=== PATIENT | female | born 1985 | race Caucasian/White ===

== ENCOUNTER 2018-02-04 04:30 | Inpatient (IN) | payer MEDICAID ==
[2018-02-04] MEDS ORDERED: AMPICILLIN 2 GM/NS (PMX) 100 ML (04:54)
[2018-02-04] MEDS ORDERED: OXYTOCIN 30 UNITS/LR 500 ML IV ×2 (05:00→18:00)
[2018-02-04] MEDS ORDERED: MISOPROSTOL 200 MCG TAB PR ×2 (05:00→18:00)
[2018-02-04] MEDS ORDERED: LIDOCAINE 1% (MPF) 30 ML INJ INJ (05:00)
[2018-02-04] MEDS ORDERED: METHYLERGONOVINE 0.2 MG INJ IM ×2 (05:00→18:00)
[2018-02-04] MEDS ORDERED: CARBOPROST 250 MCG INJ IM ×2 (05:00→18:00)
[2018-02-04] MEDS ORDERED: BUTORPHANOL 2 MG INJ IV (05:00)
[2018-02-04] MEDS: LACTATED RINGER'S 1,000 ML IV (05:13)
[2018-02-04] MEDS: AMPICILLIN 2 GM/NS (PMX) 100 ML IV (05:13)
[2018-02-04 05:22] LABS: ADD MAN DIFF? NO
[2018-02-04 05:30] LABS: BASOPHILS % 0.4 % (0.0-2.0); EOSINOPHILS # 0.1 10^3/ul (0.0-0.5); EOSINOPHILS % 1.9 % (0.0-7.0); HEMATOCRIT 36.5 % (37.0-47.0); HEMOGLOBIN 12.7 g/dl (12.0-16.0); LYMPHOCYTES # 1.5 10^3/ul (0.8-2.9); MEAN CORPUSCULAR HEMOGLOBIN 33.8 pg (29.0-33.0); MEAN CORPUSCULAR HGB CONC 34.8 g/dl (32.0-37.0); MEAN CORPUSCULAR VOLUME 97.1 fl (82.0-101.0); MEAN PLATELET VOLUME 11.3 fl (7.4-10.4); MONOCYTE # 0.5 10^3/ul (0.3-0.9); MONOCYTES % 6.7 % (0.0-11.0); NEUTROPHILS % 68.1 % (39.0-77.0); PLATELET COUNT 168 10^3/UL (140-415); RED BLOOD COUNT 3.76 10^6/ul (4.20-5.40); RED CELL DISTRIBUTION WIDTH 12.8 % (11.5-14.5)
[2018-02-04 05:30] LABS: WHITE BLOOD COUNT 7.3 10^3/ul (4.8-10.8)
[2018-02-04 05:44] LABS: INR 0.98; PROTIME 13.1 Sec (11.9-14.9)
[2018-02-04 05:46] LABS: PARTIAL THROMBOPLASTIN TIME 29.5 Sec (25.0-35.0)
[2018-02-04] MEDS ORDERED: FENTAnyl 2MCG/ML-ROPIV 0.2% 100 ML (05:59)
[2018-02-04] MEDS ORDERED: NALOXONE (0.4 MG/ML) INJ IV (06:30)
[2018-02-04] MEDS: LACTATED RINGER'S 1,000 ML IV* ×3 (06:44→19:00)
[2018-02-04] MEDS: FENTAnyl 2MCG/ML-ROPIV 0.2% 100 ML BAG EPI ×2 (06:45→13:36)
[2018-02-04 07:18] LABS: HEPATITIS B SURFACE ANTIGEN NEGATIVE (NEGATIVE)
[2018-02-04 07:37] LABS: GLUCOSE 78 mg/dl (70-220)
[2018-02-04 07:40] LABS: ADD UMIC NO; UR ASCORBIC ACID NEGATIVE (NEGATIVE); UR BILIRUBIN (Dip) NEGATIVE (NEGATIVE); UR BLOOD (Dip) NEGATIVE (NEGATIVE); UR CLARITY CLEAR (CLEAR); UR COLOR YELLOW (YELLOW); UR GLUCOSE (Dip) NEGATIVE (NEGATIVE); UR KETONES (Dip) TRACE mg/dL (NEGATIVE); UR LEUKOCYTE ESTERASE (Dip) NEGATIVE Leu/ul (NEGATIVE); UR NITRITE (Dip) NEGATIVE (NEGATIVE); UR SPECIFIC GRAVITY (Dip) 1.017 (1.003-1.030); UR TOTAL PROTEIN (Dip) NEGATIVE (NEGATIVE); UR UROBILINOGEN (Dip) NEGATIVE (NEGATIVE)
[2018-02-04] MEDS: AMPICILLIN 1 GM/NS (PMX) 50 ML IV ×2 (09:27→12:49)
[2018-02-04] MEDS: MINERAL OIL LIGHT 10 ML VIAL TOP (15:20)
[2018-02-04] MEDS: OXYTOCIN 30 UNITS/LR 500 ML IV ×2 (15:22→15:28)
[2018-02-04] MEDS: IBUPROFEN 600 MG TAB PO ×3 (17:14→23:26)
[2018-02-04] MEDS ORDERED: HYDROCODONE/APAP (5/325) TAB PO ×2 (18:00)
[2018-02-04] MEDS ORDERED: GLUCAGON 1 MG INJ IM (18:00)
[2018-02-04] MEDS ORDERED: DIBUCAINE 1% 30 GM OINT PR (18:00)
[2018-02-04] MEDS ORDERED: WITCH HAZEL/GLYCERIN PAD PR (18:00)
[2018-02-04] MEDS ORDERED: BENZOCAINE 20% 56 ML SPRAY TOP (18:00)
[2018-02-04] MEDS ORDERED: GLUCOSE GEL 15 GRAM TUBE PO ×2 (18:00)
[2018-02-04] MEDS ORDERED: DEXTROSE 50% 50 ML SYRINGE IV ×2 (18:00)
[2018-02-04] MEDS ORDERED: ZOLPIDEM 5 MG TAB PO (18:00)
[2018-02-04] MEDS ORDERED: GLUCOSE GEL 15 GRAM TUBE BUCCAL (18:00)
[2018-02-04] MEDS: CEPHALEXIN 500 MG CAP PO ×2 (18:44→23:26)
[2018-02-04] MEDS: LANOLIN 7 GM TUBE TOP (18:44)
[2018-02-04 19:33] LABS: RAPID PLASMA REAGIN NONREACTIVE (NR)
[2018-02-04] MEDS: ACCU-CHEK XX (20:26)
[2018-02-04] MEDS: metFORMIN (XR) 500 MG TAB PO (20:31)
[2018-02-04] MEDS: SENNA/DOCUSATE NA (8.6MG/50MG) TAB PO (21:00)
[2018-02-04] MEDS: MAGNESIUM HYDROXIDE 30ML CUP PO (21:00)
[2018-02-05] MEDS: IBUPROFEN 600 MG TAB PO ×4 (06:03→23:34)
[2018-02-05] MEDS: CEPHALEXIN 500 MG CAP PO ×4 (06:03→23:34)
[2018-02-05 06:37] LABS: ADD MAN DIFF? NO
[2018-02-05 06:46] LABS: BASOPHIL # 0.1 10^3/ul (0.0-0.1); BASOPHILS % 0.5 % (0.0-2.0); EOSINOPHILS # 0.1 10^3/ul (0.0-0.5); EOSINOPHILS % 0.9 % (0.0-7.0); HEMATOCRIT 34.2 % (37.0-47.0); HEMOGLOBIN 11.7 g/dl (12.0-16.0); LYMPHOCYTES % 7.8 % (15.0-51.0); MEAN CORPUSCULAR HEMOGLOBIN 33.8 pg (29.0-33.0); MEAN CORPUSCULAR HGB CONC 34.2 g/dl (32.0-37.0); MEAN CORPUSCULAR VOLUME 98.8 fl (82.0-101.0); MEAN PLATELET VOLUME 11.5 fl (7.4-10.4); MONOCYTE # 0.7 10^3/ul (0.3-0.9); MONOCYTES % 5.1 % (0.0-11.0); NEUTROPHILS % 84.5 % (39.0-77.0); PLATELET COUNT 145 10^3/UL (140-415); RED BLOOD COUNT 3.46 10^6/ul (4.20-5.40); RED CELL DISTRIBUTION WIDTH 13.3 % (11.5-14.5)
[2018-02-05] MEDS: ACCU-CHEK XX ×4 (08:00→20:41)
[2018-02-05] MEDS: MAGNESIUM HYDROXIDE 30ML CUP PO ×2 (08:45→21:22)
[2018-02-05] MEDS: SENNA/DOCUSATE NA (8.6MG/50MG) TAB PO ×2 (08:45→21:22)
[2018-02-05] MEDS: metFORMIN (XR) 500 MG TAB PO ×2 (08:46→21:22)
[2018-02-05 16:59] LABS: ADD MAN DIFF? NO
[2018-02-05 17:01] LABS: WHITE BLOOD COUNT 12.8 10^3/ul (4.8-10.8)
[2018-02-05 17:01] LABS: BASOPHILS % 0.3 % (0.0-2.0); EOSINOPHILS # 0.1 10^3/ul (0.0-0.5); EOSINOPHILS % 0.9 % (0.0-7.0); HEMATOCRIT 35.4 % (37.0-47.0); HEMOGLOBIN 12.2 g/dl (12.0-16.0); LYMPHOCYTES # 1.1 10^3/ul (0.8-2.9); LYMPHOCYTES % 8.7 % (15.0-51.0); MEAN CORPUSCULAR HEMOGLOBIN 34.2 pg (29.0-33.0); MEAN CORPUSCULAR HGB CONC 34.5 g/dl (32.0-37.0); MEAN CORPUSCULAR VOLUME 99.2 fl (82.0-101.0); MEAN PLATELET VOLUME 11.3 fl (7.4-10.4); MONOCYTE # 0.5 10^3/ul (0.3-0.9); MONOCYTES % 4.1 % (0.0-11.0); NEUTROPHIL # 10.9 10^3/ul (1.6-7.5); NEUTROPHILS % 84.8 % (39.0-77.0); PLATELET COUNT 174 10^3/UL (140-415); RED BLOOD COUNT 3.57 10^6/ul (4.20-5.40); RED CELL DISTRIBUTION WIDTH 13.2 % (11.5-14.5)
[2018-02-06] MEDS: IBUPROFEN 600 MG TAB PO (05:41)
[2018-02-06] MEDS: CEPHALEXIN 500 MG CAP PO (05:41)
[2018-02-06] MEDS: DIPHTH/TET/ACEL PERTUSS (ADULT) 0.5 ML VIAL IM* (07:31)
[2018-02-06] MEDS: VARICELLA VACCINE LIVE/PF 1,350 UNIT/0.5 ML ML SC* (07:32)
[2018-02-06] MEDS: MEASLES,MUMPS,RUBELLA VACCINE INJ SC* (07:32)
[2018-02-06] MEDS: ACCU-CHEK XX ×2 (08:00→10:26)
[2018-02-06] MEDS: SENNA/DOCUSATE NA (8.6MG/50MG) TAB PO (09:00)
[2018-02-06] MEDS: MAGNESIUM HYDROXIDE 30ML CUP PO (09:00)
[2018-02-06] MEDS: metFORMIN (XR) 500 MG TAB PO (09:00)
== END 2018-02-06 13:12 | disposition home or self-care (01) | DRG 775 ==
LOC: OBT 04:30 → L-D 04:30 → OBT 04:45 → L-D 04:45 → PP1 17:42
PROVIDERS: Obstetrics & Gynecology
PROC: 10E0XZZ Delivery of Products of Conception, External Approach (ICD-10-PCS; principal; 2018-02-04)
DX: O69.81X0 Labor and delivery complicated by cord around neck, without compression, not applicable or unspecified (principal); Z3A.37 37 weeks gestation of pregnancy; Z37.0 Single live birth
CPT/HCPCS: 62319; 71046; 81003; 82947; 82962; 85025; 85610; 85730; 86592; 86850; 86900; 86901; 87086; 87340